=== PATIENT | female | born 1965 | race Caucasian/White ===

== ENCOUNTER → 2020-09-07 | Outpatient (CLI) | payer BC, OTHER ==
[~2020-09-07] MED LIST: CIPRO500 MG PO; FLAGYL500 MG PO; ZOFRAN4 MG PO
== END ==
LOC: KOH-I 10:35
DX: M54.5 Low back pain (principal); M51.37 Other intervertebral disc degeneration, lumbosacral region; M48.07 Spinal stenosis, lumbosacral region; M43.16 Spondylolisthesis, lumbar region; M48.061 Spinal stenosis, lumbar region without neurogenic claudication
CPT/HCPCS: 72110

== ENCOUNTER 2020-11-08 17:13 | Emergency (ER) | payer BC, OTHER ==
[2020-11-08 17:41] LABS: HEMOGLOBIN 14.9 gm/dl (12.3-15.3); RED BLOOD COUNT 4.84 M/UL (4.00-5.10); WHITE BLOOD COUNT 14.5 K/UL (4.5-11.0)
[2020-11-08 18:06] LABS: BUN/CREATININE RATIO 8 (0-10)
[2020-11-08] MEDS ORDERED: CIPRO500 MG PO (20:28)
[2020-11-08] MEDS ORDERED: FLAGYL500 MG PO (20:28)
[2020-11-08] MEDS ORDERED: ZOFRAN4 MG PO (20:28)
== END 2020-11-08 20:37 | disposition home or self-care (01) ==
LOC: ER1 17:13
DX: K57.32 Diverticulitis of large intestine without perforation or abscess without bleeding (principal); I10 Essential (primary) hypertension; F17.210 Nicotine dependence, cigarettes, uncomplicated; Z88.0 Allergy status to penicillin
CPT/HCPCS: 80053; 81001; 83605; 83690; 85025; 85652; 86140; 96374; 96375; 96376; 99284; J2270; J2405; J7030; Q9967

== ENCOUNTER → 2021-11-06 | Outpatient (CLI) | payer BC, OTHER | LOC: MAMO 09:42 | DX: Z12.31 Encounter for screening mammogram for malignant neoplasm of breast (principal); Z90.710 Acquired absence of both cervix and uterus | CPT/HCPCS: 77063; 77067 ==

== ENCOUNTER 2021-12-19 13:13 | Emergency (ER) | payer BC, OTHER ==
[2021-12-19 13:42] LABS: HEMOGLOBIN 15.7 gm/dl (12.3-15.3); RED BLOOD COUNT 5.04 M/UL (4.00-5.10); WHITE BLOOD COUNT 11.2 K/UL (4.5-11.0)
[2021-12-19 14:02] LABS: BUN/CREATININE RATIO 8 (0-10)
[2021-12-19] MEDS ORDERED: CIPRO500 MG PO (17:01)
[2021-12-19] MEDS ORDERED: METRONIDAZOLE500 MG PO (17:01)
== END 2021-12-19 18:00 | disposition home or self-care (01) ==
LOC: ER1 13:13
PROVIDERS: Physician Assistant Medical
DX: K57.32 Diverticulitis of large intestine without perforation or abscess without bleeding (principal); K21.9 Gastro-esophageal reflux disease without esophagitis; F17.210 Nicotine dependence, cigarettes, uncomplicated
CPT/HCPCS: 80053; 81001; 83605; 83690; 85025; 87040; 96374; 96375; 99284; J1170; J2405; Q9967

== ENCOUNTER 2022-02-13 13:50 | Emergency (ER) | payer BC, OTHER ==
[~2022-02-13 13:50] MED LIST changes: +METRONIDAZOLE500 MG PO
[2022-02-13] MEDS ORDERED: NAPROXEN500 MG PO (15:28)
== END 2022-02-13 15:33 | disposition home or self-care (01) ==
LOC: ER1 13:50
DX: S82.61XA Displaced fracture of lateral malleolus of right fibula, initial encounter for closed fracture (principal); I10 Essential (primary) hypertension; K21.9 Gastro-esophageal reflux disease without esophagitis; F17.210 Nicotine dependence, cigarettes, uncomplicated; Z88.0 Allergy status to penicillin; Z88.2 Allergy status to sulfonamides; W01.0XXA Fall on same level from slipping, tripping and stumbling without subsequent striking against object, initial encounter; Y92.009 Unspecified place in unspecified non-institutional (private) residence as the place of occurrence of the external cause
CPT/HCPCS: 73600; 73620; 99283

== ENCOUNTER → 2022-03-11 | Outpatient (CLI) | payer BC, OTHER ==
[~2022-03-11] MED LIST changes: +NAPROXEN500 MG PO
== END ==
LOC: KOH-I 08:37
DX: S82.831A Other fracture of upper and lower end of right fibula, initial encounter for closed fracture (principal)
CPT/HCPCS: 73610

== ENCOUNTER → 2022-04-08 | Outpatient (CLI) | payer BC, OTHER | LOC: KOH-I 10:51 | DX: S82.831A Other fracture of upper and lower end of right fibula, initial encounter for closed fracture (principal); X58.XXXA Exposure to other specified factors, initial encounter | CPT/HCPCS: 73610 ==

== ENCOUNTER → 2022-04-10 | Outpatient (CLI) | payer BC, OTHER | LOC: KOH-I 14:37 | DX: S69.91XA Unspecified injury of right wrist, hand and finger(s), initial encounter (principal); M19.041 Primary osteoarthritis, right hand | CPT/HCPCS: 73110; 73130 ==

== ENCOUNTER → 2022-04-23 | Outpatient (CLI) | payer BC, OTHER | LOC: KOH-I 09:04 | DX: S86.001A Unspecified injury of right Achilles tendon, initial encounter (principal); M24.271 Disorder of ligament, right ankle | CPT/HCPCS: 73721 ==

== ENCOUNTER → 2022-05-07 | Outpatient (CLI) | payer BC, OTHER ==
[~2022-05-07] MED LIST changes: +CITALOPRAM HBR40 MG PO; +LISINOPRIL20 MG PO; +PROTONIX 40 MG40 M1 PO
[2022-05-07 08:45] LABS: HEMOGLOBIN 15.5 gm/dl (12.3-15.3); WHITE BLOOD COUNT 8.5 K/UL (4.5-11.0)
[2022-05-07 09:11] LABS: BUN/CREATININE RATIO 12 (0-10)
== END ==
LOC: OPSV2 07:53
PROVIDERS: Podiatrist Foot & Ankle Surgery
DX: Z01.812 Encounter for preprocedural laboratory examination (principal)
CPT/HCPCS: 80048; 85027

== ENCOUNTER → 2022-05-10 | Outpatient (CLI) | payer BC, OTHER | LOC: KOH-I 13:30 | DX: M79.661 Pain in right lower leg (principal) | CPT/HCPCS: 93926 ==